=== PATIENT | male | born 1965 | race Caucasian/White ===

== ENCOUNTER 2017-10-02 15:21 | Emergency (ER) | payer MEDICAID, OTHER ==
[~2017-10-02] VITALS: Ht 157.5 cm; Wt 79.0 kg
[2017-10-02 16:18] LABS: BASOPHILS % 1.1 % (0.0-2.0); EOSINOPHILS % 3.1 % (0.0-5.0); HEMATOCRIT. 47.7 % (42.0-52.0); HEMOGLOBIN. 16.3 g/dL (14.0-18.0); LYMPHOCYTES % 36.2 % (20.0-50.0); MEAN CORPUSCULAR HEMOGLOBIN 29.3 pg (28.0-32.0); MEAN CORPUSCULAR VOLUME 85.9 fL (80.0-94.0); MEAN PLATELET VOLUME 10.3 fl (7.4-10.4); MONOCYTES % 9.4 % (2.0-8.0); NEUTROPHILS % 50.2 % (40.0-76.0); PLATELET 187 x1000/uL (130-400); RED BLOOD CELL COUNT 5.56 mill/uL (4.7-6.1); RED CELL DISTRIBUTION WIDTH 14.3 % (11.6-14.6)
[2017-10-02 16:21] LABS: CHLORIDE 100 mEq/L (98-107)
[2017-10-02 16:24] LABS: PROTHROMBIN TIME 10.4 sec (9.4-11.6)
[2017-10-02 16:26] LABS: CARBON DIOXIDE 31 mEq/L (21-32)
[2017-10-02] MEDS ORDERED: ASPIRIN 325MG TABLET PO ONE (16:30)
[2017-10-02 16:33] LABS: TROPONIN I 0.37 ng/mL (0.00-0.04)
[2017-10-02] MEDS ORDERED: ENOXAPARIN 80MG/0.8ML SYR SUBCUT NR (17:00)
[2017-10-02] MEDS ORDERED: ONDANSETRON HCL 4MG/2ML VIAL IV STA (17:12)
[2017-10-02] MEDS ORDERED: MORPHINE SULFATE 4 MG/ML CPJ (NOT FOR IM USE) IV STA (17:12)
[2017-10-02] MEDS ORDERED: MORPHINE SULFATE 4 MG/ML CPJ (NOT FOR IM USE) IV ONE (18:30)
[2017-10-02 18:42] VITALS: BP 174/110
[2017-10-02] MEDS ORDERED: NITROGLYCERIN 0.4MG TABLET SL SL NR (18:45)
[2017-10-02] MEDS ORDERED: NITROGLYCERIN 0.4MG TABLET SL SL PRN (18:45)
== END 2017-10-02 19:17 | disposition short-term general hospital (02) ==
LOC: ER 15:36 → EDBEDREQ 17:24 → ER 19:17 → ENRESERV 20:03 → CANRESERV 20:03 → ENRESERV 20:13 → CANBEDREQ 20:26
DX: I21.3 ST elevation (STEMI) myocardial infarction of unspecified site (principal)
CPT/HCPCS: 36415; 71010; 80053; 83880; 84484; 85025; 85610; 93005; 96372; 96374; 96375; 96376; 99291; J1650; J2270; J2405; Z7610

== ENCOUNTER 2023-08-05 20:43 | Emergency (ER) | payer MEDICAID ==
[~2023-08-05] VITALS: Ht 162.6 cm; Wt 80.8 kg
[2023-08-05 20:57] VITALS: BP 209/133; PULSE 95; RESP 18; TEMP 98.5; O2SAT 100
== END 2023-08-05 22:03 | disposition home or self-care (01) ==
LOC: ER 20:43
DX: D17.5 Benign lipomatous neoplasm of intra-abdominal organs (principal); E11.9 Type 2 diabetes mellitus without complications; I10 Essential (primary) hypertension
CPT/HCPCS: 99281